=== PATIENT | female | born 1985 | race Caucasian/White ===

== ENCOUNTER → 2016-07-18 | Outpatient (CLI) | payer OTHER ==
[~2016-07-18] MED LIST: ANAPROX DS550 MG PO; CIPRODEX 0.3%-7.5 ML OT; CIPROFLOXACIN500 MG PO; CLARITIN10 MG PO; DAYPRO600 M1 PO; DOXYCYCLINE HY100 M3 PO; FLEXERIL10 MG PO; HYDROCODONE BIT1 T11 PO; MEDROL DOSEPAK4 MG PO; MIRENA52 MG IU; MOTRIN800 MG PO; NAPROSYN500 MG PO; PEN-VEE K500 MG PO; PROVENTIL0.09 MG/AC IH; ROBAXIN750 MG PO; TRAMADOL HCL50 MG PO; TRAMADOL50 MG PO; TRIMOX500 MG PO; TYLENOL WITH CO1 TA1 PO; VICODIN 500 MG-1 TAB PO; VOLTAREN75 MG PO; ZITHROMAX Z PA250 MG PO; Zofran4 MG PO; [UNRECOGNIZED DRUG - REMARK]
== END | disposition home or self-care (01) ==
LOC: RAD 11:33
DX: J43.9 Emphysema, unspecified (principal); F17.200 Nicotine dependence, unspecified, uncomplicated